=== PATIENT | female | born 1935 | race Caucasian/White ===

== ENCOUNTER 2018-01-21 12:28 | Observation (INO) | payer MEDICARE ==
[~2018-01-21] VITALS: Ht 157.5 cm; Wt 80.9 kg
[~2018-01-21 12:28] MED LIST: ASPI-496 PO; ASPI-515 PO; CHOL500045 PO; CLOP75TA PO; FENO67CA PO; LEVO500T47 PO; LOSA25TA5 PO; METF10002 PO; PRAV20TA2 PO; PRIM50TA PO
[2018-01-21] MEDS ORDERED: HYDROcodone/APAP 5/325 TABLET ONE (13:14)
[2018-01-21] MEDS ORDERED: HYDROcodone/APAP 5/325 TABLET PO ONE (13:30)
[2018-01-21] MEDS ORDERED: SODIUM CHLORIDE FLUSH 10ML SYR IVF ONE (13:30)
[2018-01-21 14:08] LABS: BASOPHILS # (AUTO) 0.05 x10^3/uL (0-0.1); BASOPHILS % (AUTO) 1 % (0-1); EOSINOPHILS # (AUTO) 0.18 x10^3/uL (0-0.4); EOSINOPHILS % (AUTO) 5 % (1-7); LYMPHOCYTES # (AUTO) 0.87 x10^3/uL (1-3.4); LYMPHOCYTES % (AUTO) 24 % (22-44); MD NO; MEAN CORPUSCULAR HEMOGLOBIN 28.3 pg (27.0-34.8); MEAN CORPUSCULAR HGB CONC 34.3 g/dL (32.4-35.8); MEAN CORPUSCULAR VOLUME 82.4 fL (80-100); MEAN PLATELET VOLUME 7.3 fL (7.4-10.4); MONOCYTES # (AUTO) 0.32 x10^3/uL (0.2-0.8); MONOCYTES % (AUTO) 9 % (2-9); NEUTROPHILS # (AUTO) 2.16 x10^3/uL (1.8-6.8); NEUTROPHILS % (AUTO) 60 % (42-75); PLATELET COUNT 108 x10^3/uL (130-400); RED CELL DISTRIBUTION WIDTH 15.5 % (9.6-15.2)
[2018-01-21 14:16] LABS: ANION GAP 10 mmol/L (5-15); CALCIUM 8.9 mg/dL (8.5-10.1); CHLORIDE 106 mmol/L (98-107); CREATININE 1.09 mg/dL (0.55-1.02)
[2018-01-21] MEDS ORDERED: ONDANSETRON 2MG/ML, 2ML ONE (14:34)
[2018-01-21] MEDS ORDERED: ONDANSETRON 2MG/ML, 2ML IVPush ONE (15:00)
[2018-01-21 16:11] LABS: MICROSCOPIC NOT IND
[2018-01-21 16:14] LABS: CULTURE INDICATED? NO
[2018-01-21] MEDS ORDERED: SODIUM CHLORIDE FLUSH 10ML SYR IVF PRN (17:30)
[2018-01-21 18:05] VITALS: BP 155/80
[2018-01-21] MEDS ORDERED: SODIUM CHLORIDE 0.9% 1,000 ML IV ONE (19:30)
[2018-01-21] MEDS ORDERED: ONDANSETRON ODT 4 MG PO PRN (19:30)
[2018-01-21] MEDS: HEPARIN 5,000 UNITS/ML, 1ML SQ SCH (20:29)
[2018-01-21] MEDS: PRAVASTATIN 20 MG TABLET PO SCH (20:29)
[2018-01-21 20:42] VITALS: BP 126/56
[2018-01-21 20:44] LABS: HEMOGLOBIN A1C 7.9 % (4.2-6.3)
[2018-01-21] MEDS: PRIMIDONE 50 MG TABLET PO SCH (22:59)
[2018-01-22 01:12] VITALS: BP 103/62
[2018-01-22] MEDS: ACETAMINOPHEN 325 MG TABLET PO PRN ×3 (04:20→20:55)
[2018-01-22 05:46] LABS: MEAN CORPUSCULAR HEMOGLOBIN 27.7 pg (27.0-34.8); MEAN CORPUSCULAR HGB CONC 33.8 g/dL (32.4-35.8); MEAN CORPUSCULAR VOLUME 81.9 fL (80-100); MEAN PLATELET VOLUME 7.1 fL (7.4-10.4); PLATELET COUNT 99 x10^3/uL (130-400); RED BLOOD COUNT 3.94 x10^6/uL (3.82-5.3); RED CELL DISTRIBUTION WIDTH 15.3 % (9.6-15.2)
[2018-01-22 06:12] LABS: BASOPHILS # (AUTO) 0.03 x10^3/uL (0-0.1); BASOPHILS % (AUTO) 1 % (0-1); EOSINOPHILS # (AUTO) 0.19 x10^3/uL (0-0.4); EOSINOPHILS % (AUTO) 6 % (1-7); LYMPHOCYTES # (AUTO) 1.11 x10^3/uL (1-3.4); LYMPHOCYTES % (AUTO) 33 % (22-44); MD SCAN; MONOCYTES % (AUTO) 9 % (2-9); NEUTROPHILS # (AUTO) 1.73 x10^3/uL (1.8-6.8); NEUTROPHILS % (AUTO) 52 % (42-75)
[2018-01-22 06:21] LABS: CALCIUM 8.6 mg/dL (8.5-10.1); CHLORIDE 109 mmol/L (98-107)
[2018-01-22 06:26] LABS: ANION GAP 9 mmol/L (5-15)
[2018-01-22 06:57] VITALS: BP 114/53
[2018-01-22] MEDS: INSULIN LISPRO 100 UNITS/ML, PEN SQ-INSULIN SCH ×3 (08:00→20:46)
[2018-01-22] MEDS ORDERED: CLOPIDOGREL 75 MG TABLET PO SCH (09:00)
[2018-01-22] MEDS: HEPARIN 5,000 UNITS/ML, 1ML SQ SCH ×2 (09:00→20:46)
[2018-01-22] MEDS: ASPIRIN 81 MG TABLET EC PO SCH (09:23)
[2018-01-22] MEDS: FENOFIBRATE 54 MG TABLET PO SCH (09:23)
[2018-01-22] MEDS: CHOLECALCIFEROL 1,000 UNIT TABLET PO SCH (09:24)
[2018-01-22] MEDS ORDERED: MORPHINE SULFATE 4 MG/ML, 1ML ONE (11:10)
[2018-01-22] MEDS ORDERED: MORPHINE SULFATE 4 MG/ML, 1ML IVPush ONE (11:30)
[2018-01-22 12:47] VITALS: BP 99/41
[2018-01-22 19:28] VITALS: BP 146/68
[2018-01-22] MEDS: PRAVASTATIN 20 MG TABLET PO SCH (23:03)
[2018-01-22] MEDS: PRIMIDONE 50 MG TABLET PO SCH (23:04)
[2018-01-23 01:58] VITALS: BP 102/57
[2018-01-23] MEDS: INSULIN LISPRO 100 UNITS/ML, PEN SQ-INSULIN SCH ×2 (07:00→11:00)
[2018-01-23] MEDS ORDERED: ACET325T14 PO (07:30)
[2018-01-23] MEDS ORDERED: INSU100I11 SQ-INSULIN (07:30)
[2018-01-23] MEDS ORDERED: ONDA4TAB13 PO (07:30)
[2018-01-23 07:45] VITALS: BP 113/72
[2018-01-23] MEDS: ACETAMINOPHEN 325 MG TABLET PO PRN (07:51)
[2018-01-23] MEDS: CHOLECALCIFEROL 1,000 UNIT TABLET PO SCH (07:51)
[2018-01-23] MEDS: FENOFIBRATE 54 MG TABLET PO SCH (07:51)
[2018-01-23] MEDS: HEPARIN 5,000 UNITS/ML, 1ML SQ SCH (09:00)
[2018-01-23] MEDS: ASPIRIN 81 MG TABLET EC PO SCH (09:00)
[2018-01-23 13:48] VITALS: BP 144/76
[2018-01-23] MEDS ORDERED: metFORMIN 500 MG TABLET PO SCH (17:00)
== END 2018-01-23 16:09 ==
LOC: ED 14:23 → EDIP 17:05 → INTOOBSV 17:05 → 3NE 17:36
PROVIDERS: ADMIT Internal Medicine; ATTEND Internal Medicine
DX: M48.56XA Collapsed vertebra, not elsewhere classified, lumbar region, initial encounter for fracture (principal); N17.0 Acute kidney failure with tubular necrosis; E11.9 Type 2 diabetes mellitus without complications; M46.1 Sacroiliitis, not elsewhere classified; I10 Essential (primary) hypertension; R25.1 Tremor, unspecified; E78.5 Hyperlipidemia, unspecified; G89.29 Other chronic pain; M51.36 Other intervertebral disc degeneration, lumbar region; E78.00 Pure hypercholesterolemia, unspecified; Z87.891 Personal history of nicotine dependence; Z86.73 Personal history of transient ischemic attack (TIA), and cerebral infarction without residual deficits; Z87.440 Personal history of urinary (tract) infections; Z80.0 Family history of malignant neoplasm of digestive organs; Z79.899 Other long term (current) drug therapy
CPT/HCPCS: 36415; 71046; 72110; 72148; 80048; 81003; 82040; 82306; 82962; 83036; 84443; 85025; 96374; 97162; 97166; 97530; 99285; G0378; G8978; G8979; G8980; J2405; J7030